=== PATIENT | female | born 1975 | race African-American/Black ===

== ENCOUNTER 2017-12-12 06:41 | Emergency (ER) | payer SELFPAY ==
[~2017-12-12] VITALS: Ht 165.1 cm; Wt 59.0 kg
[2017-12-12] MEDS ORDERED: OLANZAPINE 5 MG TABLET PO ONE (06:45)
[2017-12-12] MEDS ORDERED: OLANZAPINE 5 MG TABLET ONE (06:51)
--- NOTE | 2017-12-12 08:10 | NUR ---
pt refuses blood draw and says wants to go home. pt axo x4 . pt denies any si or harm to others. pt says she has a home to go. pt walks in steady gait.
--- NOTE | 2017-12-12 08:23 | NUR ---
Patient discharged to home in stable conditon. Written and verbal after care instructions given. Patient verbalizes understanding of instructions.pt walks in steady gait. hospital sandwich and juice provided.
[2017-12-12 08:24] VITALS: BP 121/71
== END 2017-12-12 08:31 | disposition home or self-care (01) ==
LOC: ER 06:45
DX: R46.1 Bizarre personal appearance (principal); F99 Mental disorder, not otherwise specified; Z59.0 Homelessness
CPT/HCPCS: A4663

== ENCOUNTER 2017-12-13 20:25 | Emergency (ER) | payer SELFPAY ==
[~2017-12-13] VITALS: Ht 162.6 cm; Wt 59.0 kg
--- NOTE | 2017-12-13 20:34 | NUR ---
PT BIB [id number] AND [employer] OFFICERS TODD #[id number] AND MERLIN #[id number], WHO STATED PT WAS FOUND IN [place]ARK AND WAS REPOTEDLY KICKING TRASHCANS, THREATENING FAMILIES, AND HITTING DOGS. PT IS YELLING PROFANITIES/VERBALLY ABUSIVE TOWARDS STAFF, AND SPITTING.
[2017-12-13] MEDS ORDERED: LORAZEPAM 2 MG/1 ML VIAL IV ONE (20:45)
[2017-12-13] MEDS ORDERED: ZIPRASIDONE MESYLATE 20 MG VIAL IM ONE ×2 (20:45→20:54)
--- NOTE | 2017-12-13 20:48 | NUR ---
LAB AT BEDSIDE FOR BLOOD DRAW.
[2017-12-13] MEDS ORDERED: LORAZEPAM 2 MG/1 ML VIAL ONE (20:55)
[2017-12-13 21:08] LABS: BASOPHILS % (AUTO) 0.7 % (0.0-2.0); EOSINOPHILS # (AUTO) 0.2 K/uL (0.0-0.7); EOSINOPHILS % (AUTO) 2.2 % (0.0-7.0); HEMOGLOBIN 13.1 g/dL (10.9-14.3); LYMPHOCYTES # (AUTO) 1.2 K/uL (20.0-40.0); LYMPHOCYTES % (AUTO) 16.9 % (20.5-51.5); MEAN CORPUSCULAR HEMOGLOBIN 29.4 uug (24.7-32.8); MEAN CORPUSCULAR HGB CONC 34 g/dL (32.3-35.6); MEAN CORPUSCULAR VOLUME 87.5 fL (75.5-95.3); MONOCYTES # (AUTO) 0.4 K/uL (2.0-10.0); MONOCYTES % (AUTO) 5.7 % (0.0-11.0); NEUTROPHILS # (AUTO) 5.2 K/uL (1.8-8.9); NEUTROPHILS % (AUTO) 74.5 % (38.5-71.5); PLATELET COUNT (AUTO) 318 K/uL (179-408); RED BLOOD CELL COUNT(AUTO) 4.46 MIL/uL (3.63-4.92); WHITE BLOOD COUNT (AUTO) 7.1 K/uL (3.8-11.8)
[2017-12-13 21:20] LABS: CARBON DIOXIDE 27 mmol/L (21-32); CHLORIDE 109 mmol/L (98-107); CREATININE 0.9 mg/dL (0.6-1.3); GLUCOSE 93 mg/dL (74-106); POTASSIUM 3.5 mmol/L (3.5-5.1); UREA NITROGEN, BLOOD 13 mg/dL (7-18)
[2017-12-13 21:23] LABS: ETHANOL < 3 MG/DL (0-0)
[2017-12-13 21:25] LABS: ALANINE AMINOTRANSFERASE 42 U/L (14-59); ALKALINE PHOSPHATASE 86 U/L (50-136); ASPARTATE AMINOTRANSFERASE 37 U/L (15-37); BILIRUBIN,DIRECT 0.1 mg/dL (0.0-0.2); BILIRUBIN,TOTAL 0.5 mg/dL (0.2-1.0); TOTAL PROTEIN, SERUM 7.4 g/dL (6.4-8.2)
[2017-12-13] MEDS ORDERED: IV NORMAL SALINE 1000 ML BAG IV ONE (21:30)
[2017-12-13 21:32] LABS: ACETAMINOPHEN < 2.0 ug/mL (10-30)
[2017-12-13 21:39] LABS: *BILIRUBIN,URIN NEGATIVE (NEGATIVE); *BLOOD, URINE NEGATIVE (NEGATIVE); *CLARITY,URINE CLEAR (CLEAR); *COLOR,URINE YELLOW (YELLOW); *KETONES,URINE TRACE (NEGATIVE); *PROTEIN,URINE 1+ (NEGATIVE); *UROBILINOGEN,URINE 0.2 E.U./dl (NORMAL); LEUKOCYTE ESTERASE ,URINE TRACE (NEGATIVE); NITRITE, URINE NEGATIVE (NEGATIVE); PH,URINE 5.5 (5.0-8.0); UGLUCOSE NEGATIVE (NEGATIVE)
--- NOTE | 2017-12-13 21:40 | NUR ---
NOTIFIED [employer] DEVELOPER FOR NEED OF SITTER, WAS TOLD NO SITTER AVAILABLE AT THIS TIME. SECURITY TO STAND BY NEEDED.
[2017-12-13 21:41] LABS: *URINE HCG, QUAL NEGATIVE (NEGATIVE)
[2017-12-13 21:46] LABS: BACTERIA,URINE RARE /HPF (NONE SEEN); RBC,URINE 0-3 /HPF (0-3); SQUAMOUS EPITHELIAL CELL,UR FEW /HPF (NONE SEEN)
[2017-12-13 21:53] LABS: *AMPHETAMINE, URINE POSITIVE (NEGATIVE); *BARBITURATE, URINE NEGATIVE (NEGATIVE); *CANNABINOID, URINE POSITIVE (NEGATIVE); *COCCAINE, URINE NEGATIVE (NEGATIVE); *OPIATE, URINE NEGATIVE (NEGATIVE); *PHENCYCLIDINE SCREEN,URINE NEGATIVE (NEGATIVE)
--- NOTE | 2017-12-13 22:05 | NUR ---
HERLINDA UREÑA CALLED FOR CRISIS EVAL. ETA 1HR.
--- NOTE | 2017-12-13 23:03 | NUR ---
RADIOLOGY AT BEDSIDE FOR XRAY.
--- NOTE | 2017-12-13 23:31 | NUR ---
HERLINDA UREÑA RN/TISSUE INSERTER EVALUATED PT. PATIENT NOT ELIGIBLE FOR HOLD CRITERIA. PATIENT DENIES SI/HI/AH/VH. PATIENT IS TRANSIENT AND WILL BE GIVEN A LIST OF RESOURCES PER TISSUE INSERTER REQUEST. PATIENT TO REMAIN IN ER UNTIL SOBER AND AMBULATORY WITH STABLE GAIT, THEN PATIENT IS CLEARED TO D/C TO PREVIOUS LIVING ARRANGEMENTS.
--- NOTE | 2017-12-14 00:08 | NUR ---
PT RESTING IN BED W/ EYES CLOSED. BREATHING EVEN AND UNLABORED. NO ACUTE DISTRESS NOTED.
--- NOTE | 2017-12-14 05:23 | NUR ---
PT AMBULATING IN ER. WATER PROVIDED, TOLERATING WELL. NO DISTRESS NOTED.
--- NOTE | 2017-12-14 05:25 | NUR ---
ROSANA JIMENEZ AT BEDSIDE FOR PATIENT EVALUATION. ROSANA JIMENEZ HAS CLEARED PATIENT FOR D/C.
--- NOTE | 2017-12-14 05:32 | NUR ---
Patient discharged to home in stable conditon. Written and verbal after care instructions given. Patient verbalizes understanding of instructions. Pt denies IVAN, CP, SOB, SI,HI. No distress noted. IV removed, w/ catheter intact. Pressure applied, no bleeding noted at site. Pt ambulated from ER w/ steady gait. Pt took all personal belongings.
[2017-12-14 05:36] VITALS: BP 116/87
== END 2017-12-14 05:37 | disposition home or self-care (01) ==
LOC: ER 20:26
DX: S52.301D Unspecified fracture of shaft of right radius, subsequent encounter for closed fracture with routine healing (principal); S52.201D Unspecified fracture of shaft of right ulna, subsequent encounter for closed fracture with routine healing; R45.4 Irritability and anger; R45.1 Restlessness and agitation; F20.9 Schizophrenia, unspecified; F17.200 Nicotine dependence, unspecified, uncomplicated; Z59.0 Homelessness; X58.XXXD Exposure to other specified factors, subsequent encounter
CPT/HCPCS: 71045; 73090; 73110; 80307; 84703; 85025; 87086; 93005; C1758; G0480; G0480-TC; J2060; J3486; J7030